=== PATIENT | male | born 1955 | race Caucasian/White ===

== ENCOUNTER 2020-06-07 09:01 | Day surgery (SDC) | payer MEDICARE, SELFPAY ==
[2020-06-07 09:23] VITALS: BP 176/107; PULSE 73; RESP 16; TEMP 37; O2SAT 97
[2020-06-07] MEDS: Balanced Salt Soln.-PLUS 500 ML BAG (11:09)
[2020-06-07] MEDS: Tetracaine 0.5% 4 ML BTL OS (11:10)
[2020-06-07] MEDS: Lidocaine 1% Pres-Free 5 ML VIAL (11:10)
[2020-06-07] MEDS: Lidocaine 2% Jelly 6 ML SYR (11:11)
[2020-06-07] MEDS: Moxifloxacin-PF 1 MG/ML VIAL (11:11)
[2020-06-07] MEDS: Trypan Blue 0.06% 0.5 ML SYR (11:14)
[2020-06-07] MEDS: Povidone-Iodine Ophth 30 ML BTL OS (11:24)
--- NOTE | 2020-06-07 11:35 | W.PM.DSUDISC ---
Discharge Plan Disposition Patient Disposition: HOME Condition: Good Discharge Details Attending Provider: Colby Hernandes Primary Care Provider: None,None Home Meds and New Rx's Prescriptions: No Action aspirin 81 mg Tablet,Chewable 81 mg PO QID RF: 0 Discharge Instructions Stand Alone Forms: Post-op Topical Cataract, Ru Ganey (DSU) Discharge Orders Discharge Orders: Discharge Order (Routine); Ordered 06/07/20 Ordered By: Colby Hernandes DS: Diagnosis Discharge Diagnosis (1) Posterior subcapsular age-related cataract of left eye: Status: Resolved (2) Nuclear sclerotic cataract of left eye: Status: Resolved (3) Cortical cataract of left eye: Status: Resolved
--- NOTE | 2020-06-07 11:36 | ROE_ITS ---
Date of service: 06/07/20 Time of Service: 11:36 Operative Note Operative Note DATE OF PROCEDURE: 06/07/20 PRE-OP DIAGNOSIS: Nuclear/cortical cataract, left eye with dense posterior subcapsular cataract POST-OP DIAGNOSIS: same PROCEDURE: Cataract extraction using phacoemulsification with intraocular lens implant, left eye, using capsular staining with Vision Blue SURGEON: Colby Hernandes ANESTHESIA: MAC (with local sub-tenon's anesthetic injection) COMPLICATIONS: None Patient was transported to: same day Patient's condition: stable Implants: [employer] Duncan / [employer] Tecnis [id number] Indications: Progressive decreased vision due to cataract, left eye, with poor red reflex Procedure Description: CATARACT SURGERY OPERATIVE REPORT PREOPERATIVE DIAGNOSIS: 1. Nuclear/cortical/posterior subcapsular cataract, left eye 2. Poor red reflex secondary to #1 POSTOPERATIVE DIAGNOSIS: Same OPERATION: 1. Cataract extraction using phacoemulsification with posterior chamber intraocular lens implant, left eye. 2. Capsular staining with Vision Blue IOL: IOL Follow Up Rep/Model: [employer] Duncan / JASKARAN Tecnis [id number] IOL Power: + 20.0 diopters IOL Serial Number: [id number] Optic Diameter: 6.0 mm Haptic/Overall Diameter: 13.0 mm PHACO INFO: Jean Claude Maicoinurion Vision System with OZil and Active Fluidics Cumulative Dispersed Energy (CDE): 8.15 seconds SURGEON: Colby Hernandes MD, KIKA ANESTHESIA: [facility] ([facility]), with local sub-tenon's anesthetic infiltration COMPLICATIONS: None SPECIMENS: None INDICATIONS FOR PROCEDURE: The patient is a 65-year-old gentleman with history of progressive decreased vision in his left eye. He is noted to have a dense posterior subcapsular cataract with moderate nuclear and cortical cataract with significantly decreased vision. The option of cataract surgery was offered to the patient and he wished to proceed. PROCEDURE: The correct surgical eye was identified and marked as the left eye and the pupil was dilated in the preoperative area using mydriatics and cycloplegics. The dilated pupil size was 7.0 mm. Oral sedation was administered in the form of an Imprimis MKO Melt (midazolam 3mg/ketamine 25mg/ondansetron 2mg). The patient was brought to the operating room where cardiopulmonary monitoring was instituted and surgical time-out was performed, confirming the correct operative eye and IOL power. Topical anesthesia was administered and ophthalmic povidone-iodine 5% was instilled into the conjunctival fornices. Lidocaine gel was applied to the cornea and the noris-ocular area was prepped with Betadine 10% solution and draped in the usual sterile fashion for intraocular surgery, including an aperture drape. A Tegaderm transparent film dressing was cut in half and used to cover the lashes and lid margins. Care was taken to sequester the lashes and lid margins under the Tegaderm dressing. A lid speculum was placed between the lids of the operative eye and the Valerie-Evita operating microscope was maneuvered into position. Kane scissors were then used to make a conjunctival buttonhole approximately 6mm posterior to the limbus in the inferonasal quadrant. Blunt dissection was carried out to expose bare sclera, and a blunt-tipped sub-tenon?s anesthesia cannula was introduced and passed posteriorly along the globe where non- preserved plain lidocaine was injected into posterior sub-Tenon?s space. A sideport knife was used to make a paracentesis port superiorly/superiortemporally. Intraocular phenylephrine/lidocaine was injected int the anterior chamber.. Air was then injected into the anterior chamber, followed by Vision Blue, which was painted over the anterior capsule and then irrigated out using BSS. The anterior chamber was filled with Healon Pro. A 2.4mm keratome knife was used to create a half-thickness groove at the limbus and then to construct a three-plane near-clear corneal tunnel extending 2.0mm into clear cornea at the 3:00 position. A flap was raised on the anterior capsule and capsulorhexis forceps were used to complete a continuous curvilinear capsulorhexis of 5.0 mm. Balanced salt solution was then used to perform cortical cleaving hydrodissection and nuclear hydrodelineation until the lens could be freely rot ated within the capsular bag. The lens nucleus was then disassembled and removed within the capsular bag and iris plane using phacoemulsification. Residual cortical material was removed using the 45-degree angled silicone I/A tip with 0.3mm port. The posterior capsule was carefully polished to remove as much residual lens epithelial cells as safely possible. The capsular bag was then inflated and the anterior chamber deepened with viscoelastic. The lens implant described above was inserted into the capsular bag using the [employer] [place] Injector. A Kuglen hook was used to dial the IOL into position. Residual viscoelastic was then removed first from posterior to the IOL, then from the anterior chamber using the I/A handpiece. The lens implant was noted to center nicely within the capsular bag. The incisions were stromally hydrated, and the anterior chamber was reformed using BSS. Then 0.5cc of moxifloxacin 1.0mg/ml were injected into the capsular bag and anterior chamber. The inci sions were checked with a Weck spear and found to be secure. Several drops of ophthalmic povidone-iodine 5% were then applied to the eye followed by two drops of Imprimis combination prednisolone/moxifloxacin/nepafenac solution. The drapes were removed and a clear plastic protective eye shield was placed over the eye. The patient was then returned to Same Day Surgery in stable condition.
[2020-06-07 12:03] VITALS: BP 175/116; PULSE 73; RESP 17; TEMP 36.4; O2SAT 96
== END 2020-06-07 12:06 | disposition home or self-care (01) ==
PROVIDERS: Visit Provider Ophthalmology
PROC: (CPT 66982; principal; 2020-06-07 11:30)
DX: H25.042 Posterior subcapsular polar age-related cataract, left eye (principal); H25.12 Age-related nuclear cataract, left eye; H25.012 Cortical age-related cataract, left eye; H35.89 Other specified retinal disorders
CPT/HCPCS: 66982; V2632

== ENCOUNTER 2020-06-21 07:33 | Day surgery (SDC) | payer MEDICARE, SELFPAY ==
[2020-06-21 07:47] VITALS: BP 162/101; PULSE 78; RESP 16; TEMP 36.6; O2SAT 98
[2020-06-21] MEDS: Lidocaine 2% Jelly 6 ML SYR (09:28)
[2020-06-21] MEDS: Povidone-Iodine Ophth 30 ML BTL (09:28)
[2020-06-21] MEDS: Tetracaine 0.5% 4 ML BTL OD (09:33)
[2020-06-21] MEDS: Lidocaine 1% Pres-Free 5 ML VIAL (09:35)
[2020-06-21] MEDS: Trypan Blue 0.06% 0.5 ML SYR (09:37)
[2020-06-21] MEDS: Balanced Salt Soln.-PLUS 500 ML BAG (09:41)
[2020-06-21] MEDS: Moxifloxacin-PF 1 MG/ML VIAL (09:47)
--- NOTE | 2020-06-21 10:24 | W.PM.DSUDISC ---
Discharge Plan Disposition Patient Disposition: HOME Condition: Good Discharge Details Attending Provider: Colby Hernandes Primary Care Provider: None,None Home Meds and New Rx's Prescriptions: No Action aspirin 81 mg Tablet,Chewable 325 mg PO QID RF: 0 Discharge Instructions Stand Alone Forms: Post-op Topical Cataract, Ru Lopezey (DSU) Discharge Orders Discharge Orders: Discharge Order (Routine); Ordered 06/21/20 Ordered By: Colby Hernandes DS: Diagnosis Discharge Diagnosis (1) Posterior subcapsular age-related cataract, right eye: Status: Resolved (2) Nuclear sclerotic cataract of right eye: Status: Resolved (3) Cortical cataract of right eye: Status: Resolved
--- NOTE | 2020-06-21 10:25 | ROE_ITS ---
Date of service: 06/21/20 Time of Service: 10:25 Operative Note Operative Note DATE OF PROCEDURE: 06/21/20 PRE-OP DIAGNOSIS: Nuclear/cortical/posterior subcapsular cataract, right eye POST-OP DIAGNOSIS: same PROCEDURE: Cataract extraction using phacoemulsification with intraocular lens implantation, right eye, using capsular staining with Vision Blue SURGEON: Colby Hernandes ANESTHESIA: MAC (with local sub-tenon's anesthetic injection) PATHOLOGY: none sent COMPLICATIONS: None Patient was transported to: same day Patient's condition: stable Implants: [employer] Duncan / [employer] Tecnis [id number] Indications: Progressive visual loss due to cataract, right eye Procedure Description: CATARACT SURGERY OPERATIVE REPORT PREOPERATIVE DIAGNOSIS: 1. Nuclear/cortical/posterior subcapsular cataract, right eye 2. Poor red reflex secondary to #1 POSTOPERATIVE DIAGNOSIS: Same OPERATION: 1. Cataract extraction using phacoemulsification with posterior chamber intraocular lens implant, right eye. 2. Capsular staining with Vision Blue IOL: IOL Business Employment Specialist/Model: [employer] Duncan / JASKARAN Tecnis [id number] IOL Power: + 21.0 diopters IOL Serial Number: [id number] Optic Diameter: 6.0mm Haptic/Overall Diameter: 13.0mm PHACO INFO: Jean Claude [employer] Vision System with OZil and Active Fluidics Cumulative Dispersed Energy (CDE): 15.61 seconds SURGEON: Colby Hernandes MD, KIKA ANESTHESIA: Monitored Anesthesia Care (MAC), with local sub-tenon's anesthetic infiltration COMPLICATIONS: None SPECIMENS: None INDICATIONS FOR PROCEDURE: The patient is a 65-year-old gentleman with history of diminished visual acuity in both eyes secondary to the development of dense bilateral nuclear cortical and posterior subcapsular cataract. He has already undergone cataract surgery in his left eye and is doing well postoperatively. He now presents for cataract surgery in the right eye. PROCEDURE: The correct surgical eye was identified and marked as the right eye and the pupil was dilated in the preoperative area using mydriatics and cycloplegics. The dilated pupil size was 7.0 mm. Oral sedation was administered in the form of an Imprimis MKO Melt (midazolam 3mg/ketamine 25mg/ondansetron 2mg). The patient was brought to the operating room where cardiopulmonary bella toring was instituted and surgical time-out was performed, confirming the correct operative eye and IOL power. Topical anesthesia was administered and ophthalmic povidone-iodine 5% was instilled into the conjunctival fornices. Lidocaine gel was applied to the cornea and the noris-ocular area was prepped with Betadine 10% solution and draped in the usual sterile fashion for intraocular surgery, including an aperture drape. A Tegaderm transparent film dressing was cut in half and used to cover the lashes and lid margins. Care was taken to sequester the lashes and lid margins under the Tegaderm dressing. A lid speculum was placed between the lids of the operative eye and the Valerie-Evita operating microscope was maneuvered into position. Kane scissors were then used to make a conjunctival buttonhole approximately 6mm posterior to the limbus in the inferonasal quadrant. Blunt dissection was carried out to expose bare sclera, and a blunt-tipped sub-tenon?s anesthesia cannula was introduced and passed posteriorly along the globe where non- preserved plain lidocaine was injected into posterior sub-Tenon?s space. A sideport knife was used to make a paracentesis port inferotemporally. Intraocular phenylephrine/lidocaine was injected into the anterior chamber. Air was injected into the anterior chamber, followed by Vision Blue, which was painted over the anterior capsule and then irrigated out with BSS. The anterior chamber was filled with Healon Pro. A 2.4mm keratome knife was used to create a half-thickness groove at the limbus and then to construct a three-plane near-c lear corneal tunnel extending 2.0mm into clear cornea superiortemporally. A flap was raised on the anterior capsule at the 730 o'clock position using a cystotome and a capsulorrhexis was initiated in a clockwise fashion. At the 11 o'clock position the capsulorrhexis began to extend peripherally. Additional viscoelastic was placed in the anterior chamber and the Little maneuver was used to attempt to rescue the peripheral extension, but was unsuccessful. Scissors were used to incise the capsule in a counterclockwise direction at the 7 o'clock position and a capsulorrhexis was propagated in a counterclockwise fashion, joining the peripheral extension at the 11 o'clock position, however the tear had already propagated peripherally so the capsulorrhexis was not continuous. Balanced salt solution was then used to perform nuclear hydrodelineation and very gentle hydrodissection so as not to place too much stress on the anterior radial tear.. The lens nucleus was then disassembled and removed within the capsular bag and iris plane using phacoemulsification. Residual cortical material was removed using the I/A handpiece. The posterior capsule was carefully polished to remove as much residual lens epithelial cells as safely possible. The capsular bag was then inflated and the anterior chamber deepened with viscoelastic. The lens implant described above was inserted into the cap sular bag using the JASKARAN [place] Injector. A Kuglen hook was used to dial the IOL into position with the haptics oriented at 3 and 9:00, approximately 90 degrees away from the radial tear. Residual viscoelastic was then removed from the anterior chamber using the I/A handpiece, allowing the viscoelastic to flow from posterior to the IOL without going behind the IOL.. The lens implant was noted to center nicely within the capsular bag. The incisions were stromally hydrated, and the anterior chamber was reformed using BSS. Then 0.5cc of moxifloxacin 1.0mg/ml were injected into the capsular bag and anterior chamber. The incisions were checked with a Weck spear and found to be secure. Several drops of ophthalmic povidone-iodine 5% were then applied to the eye followed by two drops of Imprimis combination prednisolone/moxifloxacin/nepafenac solution. The drapes were removed and a clear plastic protective eye shield was placed over the eye. The patient was then returned to Same Day Surgery in stable condition.
[2020-06-21 10:54] VITALS: BP 156/106; PULSE 73; RESP 16; TEMP 36.6; O2SAT 94
[2020-06-21 11:04] VITALS: BP 135/78; PULSE 62; RESP 16; TEMP 36.4; O2SAT 94
== END 2020-06-21 10:57 | disposition home or self-care (01) ==
PROVIDERS: Visit Provider Ophthalmology
PROC: (CPT 66982; principal; 2020-06-21 09:30)
DX: H25.041 Posterior subcapsular polar age-related cataract, right eye (principal); H25.11 Age-related nuclear cataract, right eye; H25.011 Cortical age-related cataract, right eye; H35.89 Other specified retinal disorders; F17.210 Nicotine dependence, cigarettes, uncomplicated
CPT/HCPCS: 66982; V2632